=== PATIENT | female | born 1995 | race African-American/Black ===

== ENCOUNTER 2016-08-12 17:34 | Emergency (ER) | payer OTHER, BC ==
[~2016-08-12] VITALS: Ht 162.6 cm; Wt 100.0 kg
[2016-08-12 18:19] VITALS: BP 120/63
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
== END 2016-08-12 20:09 | disposition home or self-care (01) ==
LOC: ER 17:34
DX: S19.9XXA Unspecified injury of neck, initial encounter (principal); R51 Headache; E11.9 Type 2 diabetes mellitus without complications; V43.62XA Car passenger injured in collision with other type car in traffic accident, initial encounter; Y93.89 Activity, other specified; Y99.8 Other external cause status; Y92.89 Other specified places as the place of occurrence of the external cause
CPT/HCPCS: 99283